=== PATIENT | female | born 1950 | race Caucasian/White ===

== ENCOUNTER 2018-05-15 20:54 | Emergency (ER) | payer SELFPAY, OTHER ==
[2018-05-15] MEDS: METHYLPREDNISOLONE 125 MG INJ IM (23:58)
[2018-05-15] MEDS: HYDROCODONE/APAP (10/325) TAB PO (23:58)
== END 2018-05-16 02:05 | disposition home or self-care (01) ==
LOC: FTE 05-16 02:05
DX: M79.605 Pain in left leg (principal); M54.42 Lumbago with sciatica, left side; I10 Essential (primary) hypertension
CPT/HCPCS: 72131; 93971; 96372; 99285-25